=== PATIENT | female | born 1965 | race Caucasian/White ===

== ENCOUNTER → 2020-08-17 | Outpatient (CLI) | payer OTHER ==
[~2020-08-17] MED LIST: LACTATED RINGER'S 1,000 ML ONE
== END ==
LOC: MRI 11:46
PROVIDERS: ATTEND Family Medicine
DX: S46.012A Strain of muscle(s) and tendon(s) of the rotator cuff of left shoulder, initial encounter (principal); Z01.812 Encounter for preprocedural laboratory examination; Z20.828 Contact with and (suspected) exposure to other viral communicable diseases
CPT/HCPCS: 73221; 93005; J7121; U0002

== ENCOUNTER → 2022-02-12 | Outpatient (CLI) | payer OTHER | LOC: US 15:41 | PROVIDERS: ATTEND Family Medicine | DX: R22.0 Localized swelling, mass and lump, head (principal) | CPT/HCPCS: 76882 ==